=== PATIENT | male | born 1955 | race Caucasian/White ===

== ENCOUNTER → 2017-04-01 | Outpatient (CLI) | payer BC ==
[~2017-04-01] MED LIST: AMLO-99 PO; ASPI-757 PO; ATOR40TA24 PO; ATOR40TA69 PO; BEN20 PO; CALC500T76 PO; CEPH500T7 PO; CPAP; DIA5 PO; DOCU100T13 PO; GLUC-198 PO; GLUC-283 PO; IBU800 PO; IBUP-1618 PO; IBUP600T22 PO; LOR5/325 PO; LOSA100T67 PO; MET500 PO; METF-1 PO; MULT-1 PO; NONE AT THIS TIME; OMEP-125 PO; OMEP-137 PO; OXYC-373 PO; OXYC-869 PO; PER PO; SIMV-44 PO; TAMS0.4C70 PO; VITA1CAP50 PO; [UNRECOGNIZED DRUG - CODE] IM
== END ==
LOC: RESP 06:41
PROVIDERS: ATTEND Internal Medicine
DX: G47.33 Obstructive sleep apnea (adult) (pediatric) (principal); R06.09 Other forms of dyspnea; J98.4 Other disorders of lung
CPT/HCPCS: 94060; 94726; 94729

== ENCOUNTER → 2017-06-29 | Outpatient (CLI) | payer BC ==
[2017-06-29 09:08] LABS: PLATELET COUNT, AUTOMATED 231 K/uL (150-450)
== END ==
LOC: LAB 08:44
PROVIDERS: ATTEND Internal Medicine
DX: R10.9 Unspecified abdominal pain (principal); E11.9 Type 2 diabetes mellitus without complications; K21.9 Gastro-esophageal reflux disease without esophagitis; I10 Essential (primary) hypertension
CPT/HCPCS: 36415; 81001; 82040; 82150; 82247; 82310; 82374; 82435; 82565; 82947; 83036; 83690; 84075; 84132; 84155; 84295; 84443; 84450; 84460; 84520; 85025

== ENCOUNTER → 2017-07-08 | Outpatient (CLI) | payer BC ==
[~2017-07-08] MED LIST changes: +IOPAMIDOL 76% 75 ML INFUS BTL 75 ML ONE
--- NOTE | 2017-07-08 09:41 | RADIOLOGY IMAGING REPORT ---
FACILITY: [facility] [place] PATIENT NAME: Karl Quispe : 1955 MR: [id number] V: [id number] EXAM DATE: ORDERING PHYSICIAN: SAM GARCIA TECHNOLOGIST: Location: [facility] Patient: Karl Quispe : 1955 Visit/Account:[id number] Date of Sevice: 07/08/2017 ABDOMEN/PELVIS W/WO CONTRAST HISTORY: lower abdominal pain r/o diverticulitis TECHNIQUE: Axial images acquired through the abdomen/pelvis both with and without IV contrast.. Naheed nal and sagittal reformatting also performed. One of the following dose optimization techniques was utilized in the performance of this exam: Automated exposure control; adjustment of the mA and/or kV according to the patient's size; or use of an iterative reconstruction technique. Specific details can be referenced in the facility's radiology CT exam operational policy. CONTRAST: 75 mL Isovue-370 COMPARISON: None. FINDINGS: Visualized lung bases: Negative. Hepatobiliary: Liver measures 23 Hounsfield units precontrast which is below normal limits. No foca l liver lesions are seen. Remote cholecystectomy. Spleen: Negative. Adrenals: Negative. Pancreas: Negative. Kidneys ureters and bladder: Negative. Genitalia: Negative. GI: There is mild diverticulosis through the descending and sigmoid colon without evidence of focal inflammation. Colon otherwise unremarkable. Appendix well-visualized and normal. Small bowel brant l. Vessels/spaces/nodes: Negative. Bones/soft tissues: Mild spondylitic changes seen to the lumbar spine. No evidence of compression f ractures. Additional findings: None pertinent. IMPRESSION: Mild colonic diverticulosis without evidence of diverticulitis. Hepatic steatosis. No acute pathology identified. Report Dictated By: Pastor Norton MD at 07/08/2017 9:15 AM Report E-Signed By: Pastor Norton MD at 07/08/2017 9:22 AM WSN:[email or web address]
== END ==
LOC: CT 07:06
PROVIDERS: ATTEND Internal Medicine
DX: K57.30 Diverticulosis of large intestine without perforation or abscess without bleeding (principal)
CPT/HCPCS: 74178; Q9967

== ENCOUNTER → 2017-08-24 | Outpatient (CLI) | payer BC ==
[~2017-08-24] MED LIST changes: -IOPAMIDOL 76% 75 ML INFUS BTL 75 ML ONE
--- NOTE | 2017-08-24 13:42 | RADIOLOGY IMAGING REPORT ---
FACILITY: PATIENT NAME: Karl Quispe : 1955 MR: [id number] V: [id number] EXAM DATE: ORDERING PHYSICIAN: SAM GARCIA TECHNOLOGIST: Location: [facility] - [place] Patient: Karl Quispe : 1955 Visit/Account:[id number] Date of Sevice: 08/24/2017 Exam type: LUMBAR SPINE 2 OR 3 VIEW History: back pain,knee pain Comparison: CT abdomen pelvis July 08, 2017 Findings: There are five nonrib-bearing lumbar-type vertebral bodies present. There is a minimal dextroconvex curvature to the lumbar spine. There are at least moderate multilevel spondylotic changes of the lum bar spine with moderate disc space narrowing and marginal osteophytes seen throughout. No evidence o f acute fracture or subluxation. IMPRESSION: 1. Moderate spondylotic changes throughout the visualized thoracolumbar spine. If pain continues MR may be helpful Report Dictated By: Olesya Gilbert MD at 08/24/2017 1:36 PM Report E-Signed By: Olesya Gilbert MD at 08/24/2017 1:38 PM WSN:[email or web address]
--- NOTE | 2017-08-24 15:43 | RADIOLOGY IMAGING REPORT ---
FACILITY: [facility] [place]IENT NAME: Karl Quispe : 1955 MR: [id number] V: [id number] EXAM DATE: ORDERING PHYSICIAN: SAM GARCIA TECHNOLOGIST: Location: [facility] [place] Patient: Karl Quispe : 1955 Visit/Account:[id number] Date of Sevice: 08/24/2017 Exam type: KNEE 3 VIEW LEFT History: left knee pain Comparison: None. Findings: There is moderate narrowing of the medial compartment of the left knee and mild narrowing of the hargrove llofemoral compartment. There is a small Akbar-Stieda type calcification projecting just medial to the medial femoral condyle. There are several calcifications projecting just posterior to the le ft knee joint on the lateral view which appear old IMPRESSION: 1. Moderate degenerative changes involving the medial compartment and mild degenerative changes invo lving the patellofemoral compartment of the left knee. Report Dictated By: Olesya Gilbert MD at 08/24/2017 3:35 PM Report E-Signed By: Olesya Gilbert MD at 08/24/2017 3:38 PM WSN:[email or web address]
== END ==
LOC: RAD 10:13
PROVIDERS: ATTEND Internal Medicine
DX: M17.12 Unilateral primary osteoarthritis, left knee (principal); M47.895 Other spondylosis, thoracolumbar region
CPT/HCPCS: 72100

== ENCOUNTER → 2018-06-13 | Outpatient (CLI) | payer BC ==
[~2018-06-13] MED LIST changes: +AMLO-127 PO; -AMLO-99 PO; +ATOR-1 PO; +AZIT-17 PO; -LOSA100T67 PO; +LOSA100T75 PO; +METF-452 PO
[2018-06-13 09:11] LABS: PLATELET COUNT, AUTOMATED 263 K/uL (150-450)
[2018-06-13 10:08] LABS: LDL CHOLESTEROL 66 mg/dl
== END ==
LOC: LAB 08:52
PROVIDERS: ATTEND Internal Medicine
DX: E11.9 Type 2 diabetes mellitus without complications (principal); E78.5 Hyperlipidemia, unspecified; I10 Essential (primary) hypertension
CPT/HCPCS: 36415; 82040; 82247; 82310; 82374; 82435; 82465; 82565; 82947; 83036; 83718; 84075; 84132; 84153; 84155; 84295; 84450; 84460; 84478; 84520; 85025